=== PATIENT | female | born 2000 | race Asian ===

== ENCOUNTER 2021-12-16 01:29 | Inpatient (IN) ==
[2021-12-16] MEDS ORDERED: Ondansetron 4 mg VIAL 2 MG/ML 2 ml VIAL IV ONE (02:35)
[2021-12-16] MEDS ORDERED: Lactated Ringers 1000 ml BAG 1,000 ML IV ONE (02:36)
[2021-12-16 02:56] LABS: ABS Eosinophils 0.1 10^3/ul (0-0.6); ABS Lymphocytes 1.1 10^3/ul (1.0-4.8); ABS Monocytes 0.4 10^3/ul (0-0.8); ABS Neutrophils 8.6 10^3/ul (1.5-7.7); Eosinophil % 0.6 %; Hematocrit 36 % (35-47); Hemoglobin 12.1 g/dL (12.0-16.0); Mean Corpuscular HGB Conc 33 g/dL (31-36); Mean Corpuscular Hemoglobin 22 pg (27-31); Mean Corpuscular Volume 66 fL (80-97); Platelet Count 340 10^3/uL (150-450); Red Blood Count 5.51 10^6 /uL (3.70-4.87); Red Cell Distribution Width 16 % (10-15); White Blood Count 10.2 10^3/uL (3.5-10.8)
[2021-12-16 03:11] LABS: ALT 7 U/L (7-52); AST 14 U/L (13-39); Acetaminophen < 15 mcg/mL; Albumin 5.1 g/dL (3.2-5.2); Albumin/Globulin Ratio 1.8 (1-3); Alkaline Phosphatase 76 U/L (35-149); Anion Gap 12 mmol/L (2-11); Blood Urea Nitrogen 8 mg/dL (6-24); CO2 Carbon Dioxide 23 mmol/L (22-32); Calcium 9.7 mg/dL (8.6-10.3); Chloride 101 mmol/L (101-111); Globulin 2.8 g/dL (2-4); Glucose 100 mg/dL (70-100); Salicylate < 2.50 mg/dL (<30); Sodium 136 mmol/L (135-145); Total Protein 7.9 g/dL (6.4-8.9); eGFR CKD-EPI 129.9 (>60)
[2021-12-16 03:25] LABS: TSH Ultra Thyroid Stim Horm 0.17 mcIU/mL (0.34-5.60)
[2021-12-16 04:10] LABS: Urine Appearance Cloudy; Urine Bilirubin Negative (Negative); Urine Blood 2+ (Negative); Urine Color Yellow; Urine Glucose Negative (Negative); Urine Ketones 2+ (Negative); Urine Nitrite Negative (Negative); Urine Protein Negative (Negative); Urine Specific Gravity 1.025 (1.002-1.030); Urine Urobilinogen Negative (Negative)
[2021-12-16 04:13] LABS: Urine Bacteria Absent (Absent); Urine Red Blood Cell 2+(6-10/hpf) (Absent); Urine Squamous Epithelial Cell Present (Absent); Urine White Blood Cell 2+(11-20/hpf) (Absent)
[2021-12-16 04:17] LABS: Urine Benzodiazepine Screen None Detected (None Detect); Urine Cannabinoids Screen None Detected (None Detect); Urine Opiates Screen None Detected (None Detect)
[2021-12-16 06:30] LABS: Alcohol, S < 13 mg/dL (<13)
[2021-12-16 06:44] LABS: Free T4 1.08 ng/dL (0.61-1.12)
[2021-12-17] MEDS ORDERED: Al Hydrox/Mg Hydrox/Simet LIQ 30 ML UDC PO PRN (01:45)
[2021-12-17] MEDS: Vitamin THERAPEUTIC TAB PO SCH (08:47)
[2021-12-18] MEDS: Vitamin THERAPEUTIC TAB PO SCH (08:19)
[2021-12-19] MEDS: Vitamin THERAPEUTIC TAB PO SCH (08:57)
[2021-12-20] MEDS: Vitamin THERAPEUTIC TAB PO SCH (08:21)
[2021-12-21] MEDS: Vitamin THERAPEUTIC TAB PO SCH (08:54)
[2021-12-22] MEDS: Vitamin THERAPEUTIC TAB PO SCH (08:50)
[2021-12-23] MEDS: Vitamin THERAPEUTIC TAB PO SCH (08:29)
[2021-12-24] MEDS: Vitamin THERAPEUTIC TAB PO SCH (08:59)
[2021-12-25 08:10] VITALS: BP 110/65
[2021-12-25] MEDS: Vitamin THERAPEUTIC TAB PO SCH (08:55)
== END 2021-12-25 13:46 | disposition home or self-care (01) | DRG 885 ==
LOC: ED 01:29 → BSU 08:47 → ED 08:48 → BSU 09:59
PROVIDERS: ADMIT Psychiatry & Neurology Psychiatry; ATTEND Psychiatry & Neurology Psychiatry

== ENCOUNTER 2022-04-21 13:45 | Inpatient (IN) ==
[2022-04-21 14:39] LABS: ABS Eosinophils 0.1 10^3/ul (0-0.6); ABS Lymphocytes 1.9 10^3/ul (1.0-4.8); ABS Monocytes 0.7 10^3/ul (0-0.8); ABS Neutrophils 7.2 10^3/ul (1.5-7.7); Eosinophil % 0.9 %; Hematocrit 35 % (35-47); Hemoglobin 11.3 g/dL (12.0-16.0); Mean Corpuscular HGB Conc 32 g/dL (31-36); Mean Corpuscular Hemoglobin 21 pg (27-31); Mean Corpuscular Volume 66 fL (80-97); Nucleated Red Blood Cells % 0.1; Platelet Count 359 10^3/uL (150-450); Red Blood Count 5.35 10^6 /uL (3.70-4.87); Red Cell Distribution Width 16 % (10-15); White Blood Count 9.8 10^3/uL (3.5-10.8)
[2022-04-21 15:43] LABS: HCG Pregnancy < 0.60 mIU/mL
[2022-04-21 15:45] LABS: ALT 7 U/L (7-52); AST 13 U/L (13-39); Albumin 4.8 g/dL (3.2-5.2); Albumin/Globulin Ratio 1.7 (1-3); Alcohol, S < 13 mg/dL (<13); Alkaline Phosphatase 70 U/L (35-149); Anion Gap 14 mmol/L (2-11); Blood Urea Nitrogen 11 mg/dL (6-24); CO2 Carbon Dioxide 19 mmol/L (22-32); Calcium 9.7 mg/dL (8.6-10.3); Chloride 105 mmol/L (101-111); Globulin 2.9 g/dL (2-4); Glucose 134 mg/dL (70-100); Potassium 3.3 mmol/L (3.5-5.0); Salicylate < 2.50 mg/dL (<30); Sodium 138 mmol/L (135-145); Total Protein 7.7 g/dL (6.4-8.9); eGFR CKD-EPI 128.4 (>60)
[2022-04-21 15:48] LABS: TSH Ultra Thyroid Stim Horm 1.23 mcIU/mL (0.34-5.60)
[2022-04-21 15:54] LABS: Urine Benzodiazepine Screen None Detected (None Detect); Urine Cannabinoids Screen None Detected (None Detect); Urine Opiates Screen None Detected (None Detect)
[2022-04-21 16:15] LABS: Urine Appearance Clear; Urine Bilirubin Negative (Negative); Urine Blood Trace (Intact) (Negative); Urine Color Yellow; Urine Glucose Negative (Negative); Urine Ketones 1+ (15mg/dL) (Negative); Urine Nitrite Negative (Negative); Urine Protein Negative (Negative); Urine Specific Gravity 1.026 (1.002-1.030); Urine Urobilinogen 0.2 (Negative) (Negative); Urine pH 5.5 (5.0-9.0)
[2022-04-21 16:19] LABS: Urine Bacteria Absent (Absent); Urine Red Blood Cell Trace(0-2/hpf) (Absent); Urine Squamous Epithelial Cell Present (Absent); Urine White Blood Cell Trace(0-5/hpf) (Absent)
[2022-04-21] MEDS ORDERED: Al Hydrox/Mg Hydrox/Simet LIQ 30 ML UDC PO PRN (17:21)
[2022-04-21 17:46] LABS: Acetaminophen < 15 mcg/mL
[2022-04-22] MEDS: Vitamin THERAPEUTIC TAB PO SCH (07:14)
[2022-04-22] MEDS ORDERED: LORazepam 2 mg VIAL 1 ml ONE (12:10)
[2022-04-23] MEDS: Vitamin THERAPEUTIC TAB PO SCH (09:27)
[2022-04-24 07:50] LABS: HDL Cholesterol 60.4 mg/dL
[2022-04-24] MEDS: Vitamin THERAPEUTIC TAB PO SCH (07:59)
[2022-04-25] MEDS: Vitamin THERAPEUTIC TAB PO SCH (09:19)
[2022-04-26] MEDS: Vitamin THERAPEUTIC TAB PO SCH (08:40)
[2022-04-27] MEDS: Vitamin THERAPEUTIC TAB PO SCH (08:42)
[2022-04-28] MEDS: Vitamin THERAPEUTIC TAB PO SCH (09:47)
[2022-04-29] MEDS: Vitamin THERAPEUTIC TAB PO SCH (08:37)
[2022-04-30] MEDS: Vitamin THERAPEUTIC TAB PO SCH (08:36)
[2022-05-01] MEDS: Vitamin THERAPEUTIC TAB PO SCH (08:36)
[2022-05-02 07:25] VITALS: BP 118/64
[2022-05-02] MEDS: Vitamin THERAPEUTIC TAB PO SCH (08:47)
== END 2022-05-02 17:50 | disposition home or self-care (01) | DRG 885 ==
LOC: ED 13:45 → BSU 17:17
PROVIDERS: ADMIT Psychiatry & Neurology Psychiatry; ATTEND Psychiatry & Neurology Psychiatry